=== PATIENT | male | born 1960 | race Caucasian/White ===

== ENCOUNTER 2020-12-11 10:12 | Inpatient (IN) ==
[~2020-12-11 10:12] MED LIST: Buffered Lidocaine 1% SYRIN 1 ml INTRADERM ONE; DiMENhydriNATE IV 50 mg/ml 1 ml VIAL IV PUSH ONE; HYDROcodone/ACETAMIN 5/325 mg TAB PO PRN; Lactated Ringers 1000 ml BAG 1,000 ML IV SCH; Metoclopramide 5 MG/ML VIAL (10 mg) IV PRN; Naloxone 0.4 mg VIAL 0.4 mg/ml 1 ml VIAL IV PRN; Ondansetron 4 mg VIAL 2 MG/ML 2 ml VIAL IV PRN; fentaNYL 100 mcg/2 ml 50 MCG/ML VIAL IV PRN
[2020-12-11] MEDS ORDERED: Buffered Lidocaine 1% SYRIN 1 ml INTRADERM ONE (10:48)
[2020-12-11] MEDS ORDERED: ceFAZolin 1 GM ADVAN 1 GM ADDV.VIAL IVPB ONE (10:48)
[2020-12-11] MEDS ORDERED: DiMENhydriNATE IV 50 mg/ml 1 ml VIAL ONE (10:48)
[2020-12-11] MEDS ORDERED: ceFAZolin 2 GM in NS PREMIX 2 GM/100 ML BAG IVPB ONE (10:48)
[2020-12-11] MEDS ORDERED: Bupivacaine 0.5% SDV PF 30ML VIAL ONE (11:19)
[2020-12-11] MEDS ORDERED: Lidocaine 2% PF 5 ML VIAL ONE (12:25)
[2020-12-11] MEDS ORDERED: Ondansetron 4 mg VIAL 2 MG/ML 2 ml VIAL ONE (12:25)
[2020-12-11] MEDS ORDERED: Dexamethasone IV 4 MG/ML VIAL 1 ml VIAL ONE (12:25)
[2020-12-11] MEDS ORDERED: ROPIVACAINE 5 MG/ML 30 ML BTL (0.5%) ONE (12:38)
[2020-12-11] MEDS ORDERED: Phenylephrine 40 mcg/mL 10mL (400mcg) SYRINGE ONE (13:28)
[2020-12-11] MEDS ORDERED: EPHEDrine (Pressors) 50 MG/ML VIAL ONE (14:08)
[2020-12-11] MEDS ORDERED: Propofol 10 MG/ML 20 ML BTL ONE ×6 (14:08→15:57)
[2020-12-11] MEDS ORDERED: Morphine 2 MG/ML SYRINGE IV PRN (14:53)
[2020-12-11] MEDS ORDERED: Ondansetron 4 mg VIAL 2 MG/ML 2 ml VIAL IV PRN (14:53)
[2020-12-11] MEDS ORDERED: Lactulose 30 ml UDC PO PRN (14:53)
[2020-12-11] MEDS ORDERED: Ondansetron ODT 4 mg TAB 4 MG TAB PO PRN (14:53)
[2020-12-11] MEDS ORDERED: diPHENhydraMINE IV 50 MG/ML 1 ml VIAL (BENADRYL) IV PRN (14:53)
[2020-12-11] MEDS ORDERED: diPHENhydraMINE 25 mg TAB PO PRN (14:53)
[2020-12-11] MEDS ORDERED: Magnesium Hydroxide LIQ 30 ML UDC PO PRN (14:53)
[2020-12-11] MEDS ORDERED: Lactated Ringers 1000 ml BAG 1,000 ML IV SCH (15:00)
[2020-12-11] MEDS ORDERED: fentaNYL 100 mcg/2 ml 50 MCG/ML VIAL ONE (15:12)
[2020-12-11] MEDS ORDERED: HYDROcodone/ACETAMIN 5/325 mg TAB ONE (16:55)
[2020-12-11] MEDS ORDERED: Dextran 70/Hypromellose Tears Eye Drops 15 ml BTL (for Artificials Tears) BOTH EYES PRN (18:07)
[2020-12-11] MEDS: Magnesium Hydroxide LIQ 30 ML UDC PO SCH (23:15)
[2020-12-11] MEDS: ceFAZolin 1 GM ADVAN 1 GM in NS 0.9% 50 ML 50 ML IVPB SCH (23:17)
[2020-12-12] MEDS: ceFAZolin 1 GM ADVAN 1 GM in NS 0.9% 50 ML 50 ML IVPB SCH ×2 (06:32→12:49)
[2020-12-12 07:12] LABS: Hematocrit 38 % (42-52); Mean Platelet Volume 8.6 fL (7.4-10.4); Platelet Count 193 10^3/uL (150-450)
[2020-12-12 07:29] LABS: Calcium 8.8 mg/dL (8.6-10.3); EGFR African American 102.5 (>60); EGFR Non-African American 84.7 (>60); Potassium 4.3 mmol/L (3.5-5.0)
[2020-12-12 08:59] VITALS: BP 149/78
[2020-12-12] MEDS ORDERED: Vitamin THERAPEUTIC TAB PO SCH (09:00)
[2020-12-12] MEDS: Magnesium Hydroxide LIQ 30 ML UDC PO SCH (10:19)
== END 2020-12-12 13:30 | disposition home or self-care (01) | DRG 302 ==
LOC: AA 10:12 → SSU 17:54
PROVIDERS: ADMIT Orthopaedic Surgery Adult Reconstructive Orthopaedic Surgery; ATTEND Orthopaedic Surgery Adult Reconstructive Orthopaedic Surgery